=== PATIENT | female | born 1990 | race Caucasian/White ===

== ENCOUNTER 2020-10-02 20:00 | Inpatient (IN) ==
[2020-10-03] MEDS ORDERED: Ringers Solution, Lactated 1,000 ML ONE (08:14)
[2020-10-03] MEDS ORDERED: Famotidine 20 MG/2 ML VIAL IVP PRN (08:18)
[2020-10-03] MEDS ORDERED: Naloxone 0.4 MG/ML INJ IVP PRN (08:18)
[2020-10-03] MEDS ORDERED: Ondansetron 4 MG/2 ML VIAL IVP PRN (08:18)
[2020-10-03] MEDS ORDERED: Lidocaine 1% 20 ML MDV ID PRN (08:18)
[2020-10-03] MEDS ORDERED: *HR* FentaNYL (PF) 100 MCG/2 ML VIAL IVP PRN (08:18)
[2020-10-03] MEDS ORDERED: Azithromycin 500 MG in 0.9 % Sodium Chloride 250 ML IVPB PRN (08:18)
[2020-10-03] MEDS ORDERED: Metoclopramide 10 MG/2 ML VIAL IVP PRN (08:18)
[2020-10-03 08:42] LABS: Basophils # 0.1 K/mcL (0.0-0.2); Basophils % 0.5 %; Eosinophils # 0.2 K/mcL (0.0-0.6); Hematocrit 36.7 % (35.3-44.9); Hemoglobin 11.8 g/dL (11.5-15.4); Immature Granulocytes % 2.8 % (0-4); Lymphocytes # 3.6 K/mcL (0.6-4.6); Lymphocytes % 24.3 %; Mean Corpuscular HGB Conc 32.2 g/dL (31.6-35.5); Mean Corpuscular Hemoglobin 31.2 pg (28.0-33.3); Mean Corpuscular Volume 97.1 fL (83.0-100.0); Mean Platelet Volume 11.3 fL (9.4-12.4); Monocytes # 0.7 K/mcL (0.0-1.3); Neutrophils # 9.7 K/mcL (1.6-8.9); Platelet Count 215 K/mcL (140-400); Red Blood Count 3.78 M/mcL (3.82-4.97); Red Cell Distribution Width 14.9 % (11.5-14.5); Segmented Neutrophils % 66.4 %; White Blood Count 14.7 K/mcL (4.3-11.1)
[2020-10-03 08:49] LABS: Protein/Creatinine Ratio,Urine 0.34 mg/mg (0.00-0.20)
[2020-10-03 08:53] LABS: Amphetamine Screen,Urine Negative ng/mL (Cutoff=1000); Barbiturate Screen,Urine Negative ng/mL (Cutoff=200); Benzodiazepines Screen,Urine Negative ng/mL (Cutoff=200); Cannabinoid Screen,Urine Negative ng/mL (Cutoff = 50); Cocaine Screen,Urine Negative ng/mL (Cutoff= 300); Opiate Screen,Urine Negative ng/mL (Cutoff=300); Phencyclidine Screen,Urine Negative ng/mL (Cutoff=25)
[2020-10-03 08:56] LABS: Alanine Aminotransferase 12 Units/L (7-52); Aspartate Amino Transferase 21 Units/L (13-39); BUN/Creatinine Ratio 20 (6-26); Blood Urea Nitrogen 8 mg/dL (6-20); Lactate Dehydrogenase 166 Units/L (140-271); Uric Acid 6.3 mg/dL (2.3-7.6); eGFR For African Americans > 60 (> 60); eGFR For Non-African Americans > 60 (> 60)
[2020-10-03] MEDS ORDERED: miSOPROStoL 25 MCG TABLET PO PRN (10:40)
[2020-10-03] MEDS ORDERED: EPHEDrine 50 MG/ML VIAL IVP PRN (11:41)
[2020-10-03] MEDS ORDERED: Epidural Premix (fent/bupiv) 110 ML EP SCH (11:45)
[2020-10-03] MEDS ORDERED: miSOPROStoL 25 MCG TABLET VG SCH (12:45)
[2020-10-03] MEDS: Ringers Solution, Lactated 1,000 ML IVC SCH (13:20)
[2020-10-03] MEDS ORDERED: Morphine Sulfate 2 MG/ML SYRINGE SQ ONE (15:26)
[2020-10-03] MEDS ORDERED: Morphine Sulfate 2 MG/ML SYRINGE IVP ONE (15:27)
[2020-10-04] MEDS ORDERED: Oxytocin 20 units/ LR 1000 mL 20 UNIT/1,000 ML BAG IVC SCH ×2 (04:15→18:27)
[2020-10-04] MEDS ORDERED: Metoclopramide 10 MG/2 ML VIAL IVP STA (08:31)
[2020-10-04] MEDS: Ringers Solution, Lactated 1,000 ML IVC SCH (09:55)
[2020-10-04 12:03] LABS: Adenovirus Not Detected (Not Detect); Bordetella Pertussis Not Detected (Not Detect); Chlamydophila pneumoniae Not Detected (Not Detect); Coronavirus 229E Not Detected (Not Detect); Coronavirus HKU1 Not Detected (Not Detect); Coronavirus NL63 Not Detected (Not Detect); Coronavirus OC43 Not Detected (Not Detect); Human Metapneumovirus Not Detected (Not Detect); Human Rhinovirus/Enterovirus Not Detected (Not Detect); Influenza A Subtype 2009 H1 Not Detected (Not Detect); Influenza B Not Detected (Not Detect); Mycoplasma pneumoniae Not Detected (Not Detect); Parainfluenza Virus 1 Not Detected (Not Detect); Parainfluenza Virus 2 Not Detected (Not Detect); Parainfluenza Virus 3 Not Detected (Not Detect); Parainfluenza Virus 4 Not Detected (Not Detect); Respiratory Syncytial Virus Not Detected (Not Detect); SARS-CoV-2 DETECTED (Not Detect)
[2020-10-04] MEDS ORDERED: CeFAZolin Syr 3,000MG/30 ML 3,000 MG/30 ML SYRINGE IVPB ONE (13:13)
[2020-10-04] MEDS ORDERED: Lidocaine/EPI 1:200k 2% PF 20 ML VIAL ONE (13:19)
[2020-10-04] MEDS ORDERED: EPHEDrine 50 MG/ML VIAL ONE (13:20)
[2020-10-04] MEDS ORDERED: *HR* Morphine Sulfate/PF 10 MG/10 ML AMPUL ONE (14:59)
[2020-10-04] MEDS ORDERED: Acetaminophen IV 1,000 MG/100 ML INFUS..BTL ONE (15:00)
[2020-10-04] MEDS ORDERED: Ondansetron 4 MG/2 ML VIAL ONE (15:00)
[2020-10-04] MEDS ORDERED: Ondansetron 4 MG/2 ML VIAL IVP PRN (16:39)
[2020-10-04] MEDS ORDERED: *HR* OxyCODONE Immed Rel 5 MG TABLET PO PRN (16:39)
[2020-10-04] MEDS ORDERED: *HR* HYDROmorphone PF 0.5 MG/0.5 ML SYRINGE IVP PRN (16:39)
[2020-10-04] MEDS ORDERED: Rho Immune Globulin 1,500 UNIT SYRINGE IM PRN (18:27)
[2020-10-04] MEDS ORDERED: Measles/Mumps/Rubella Vacc 0.5 ML VIAL SQ PRN (18:27)
[2020-10-04] MEDS ORDERED: Acetaminophen 325 MG TABLET PO PRN (18:27)
[2020-10-04] MEDS ORDERED: Oxytocin 20 units/ LR 1000 mL 20 UNIT/1,000 ML BAG IVC ONE (18:27)
[2020-10-04] MEDS: Ibuprofen 600 MG TABLET PO PRN (19:42)
[2020-10-04 22:16] LABS: Amorphous Sediment,Urine Few per hpf (None-Few); Bacteria,Urine Few per hpf (None-Few); Bilirubin,Urine Negative (Negative); Blood,Urine Moderate (Negative); Clarity,Urine Clear (Clear); Color,Urine Light-Orange (Yellow); Glucose,Urine (UA) Normal (Normal); Ketones,Urine >150 mg/dL (Negative); Leukocyte Esterase,Urine Negative (Negative); Mucus,Urine Many per lpf (None-Few); Nitrite,Urine Negative (Negative); PH,Urine 5.5 pH Units (5.0-8.0); Protein,Urine 50 mg/dL (Neg-Trace); RBC,Urine 50-100 per hpf (0-3); Specific Gravity,Urine 1.026 (1.010-1.025); Squamous Epithelial Cell,Urine Few per hpf (None-Few); Urobilinogen,Urine Normal (Normal)
[2020-10-05 02:06] LABS: Basophils % 0.2 %; Eosinophils % 0.2 %; Immature Granulocytes % 0.7 % (0-4); Lymphocytes # 1.7 K/mcL (0.6-4.6); Mean Corpuscular HGB Conc 31.9 g/dL (31.6-35.5); Mean Corpuscular Hemoglobin 31.6 pg (28.0-33.3); Mean Platelet Volume 11.9 fL (9.4-12.4); Monocytes # 0.6 K/mcL (0.0-1.3); Monocytes % 3.4 %; Neutrophils # 14.3 K/mcL (1.6-8.9); Platelet Count 151 K/mcL (140-400); Red Blood Count 3.13 M/mcL (3.82-4.97); Red Cell Distribution Width 14.7 % (11.5-14.5); Segmented Neutrophils % 85.5 %; White Blood Count 16.7 K/mcL (4.3-11.1)
[2020-10-05 02:08] LABS: Hemoglobin 9.9 g/dL (11.5-15.4)
[2020-10-05] MEDS ORDERED: Ringers Solution, Lactated 1,000 ML ONE (06:24)
[2020-10-05] MEDS ORDERED: Ringers Solution, Lactated 500 ML IVC ONE (06:32)
[2020-10-05] MEDS: Nitrofurantoin (BID) 100 MG CAPSULE PO SCH ×2 (08:28→19:46)
[2020-10-05] MEDS: Loratadine 10 MG TABLET PO SCH (08:28)
[2020-10-05] MEDS: Ibuprofen 600 MG TABLET PO PRN ×2 (08:28→15:58)
[2020-10-05] MEDS: Prenatal Vit/FA 1 EACH TABLET PO SCH (08:28)
[2020-10-05] MEDS ORDERED: Ondansetron 4 MG/2 ML VIAL IVP ONE (10:09)
[2020-10-05] MEDS: *HR* OxyCODONE/APAP 5/325 TABLET PO PRN ×2 (10:52→18:41)
[2020-10-05] MEDS: Simethicone 80 MG TAB.CHEW PO PRN (18:40)
[2020-10-06] MEDS: *HR* OxyCODONE/APAP 5/325 TABLET PO PRN ×4 (00:34→23:25)
[2020-10-06] MEDS: Simethicone 80 MG TAB.CHEW PO PRN ×4 (00:34→23:25)
[2020-10-06] MEDS: Loratadine 10 MG TABLET PO SCH (08:41)
[2020-10-06] MEDS: Prenatal Vit/FA 1 EACH TABLET PO SCH (08:41)
[2020-10-07] MEDS: Loratadine 10 MG TABLET PO SCH (08:08)
[2020-10-07] MEDS: Prenatal Vit/FA 1 EACH TABLET PO SCH (08:13)
[2020-10-07] MEDS: *HR* OxyCODONE/APAP 5/325 TABLET PO PRN (08:17)
[2020-10-07 08:19] VITALS: BP 146/68
[2020-10-07] MEDS ORDERED: cephALEXin 500 MG CAPSULE PO SCH (09:15)
[2020-10-07] MEDS ORDERED: metroNIDAZOLE 500 MG TABLET PO SCH (09:15)
== END 2020-10-07 13:30 | disposition home or self-care (01) | DRG 786 ==
LOC: 1NENULAB 10-03 07:08 → 1NENUOBS 10-04 18:26
PROVIDERS: ADMIT Obstetrics & Gynecology; ATTEND Obstetrics & Gynecology